=== PATIENT | female | born 1980 | race Caucasian/White ===

== ENCOUNTER → 2020-10-23 | Outpatient (CLI) | payer MEDICARE, OTHER | LOC: ECHO 08:02 | DX: Q24.9 Congenital malformation of heart, unspecified (principal); Q25.6 Stenosis of pulmonary artery | CPT/HCPCS: ECHO; 93306 ==

== ENCOUNTER → 2020-11-13 | Outpatient (CLI) | payer MEDICARE, OTHER ==
[2020-11-14 04:12] LABS: THYROXINE (T4) 8.1 ug/dL (4.5-12.0)
== END ==
LOC: LAB 08:20
PROVIDERS: Pediatrics Pediatric Cardiology
DX: E03.9 Hypothyroidism, unspecified (principal); Q24.9 Congenital malformation of heart, unspecified
CPT/HCPCS: 36415; 80053; 84436; 84443; 84480

== ENCOUNTER → 2020-12-14 | Outpatient (CLI) | payer MEDICARE, OTHER | LOC: KOH-I 09:30 | DX: S22.080A Wedge compression fracture of T11-T12 vertebra, initial encounter for closed fracture (principal); W19.XXXA Unspecified fall, initial encounter; M51.36 Other intervertebral disc degeneration, lumbar region; M54.5 Low back pain; M25.561 Pain in right knee; M25.562 Pain in left knee; R26.2 Difficulty in walking, not elsewhere classified; M48.061 Spinal stenosis, lumbar region without neurogenic claudication; R93.7 Abnormal findings on diagnostic imaging of other parts of musculoskeletal system; M51.34 Other intervertebral disc degeneration, thoracic region; M48.04 Spinal stenosis, thoracic region; M51.84 Other intervertebral disc disorders, thoracic region; M16.12 Unilateral primary osteoarthritis, left hip; M17.0 Bilateral primary osteoarthritis of knee | CPT/HCPCS: 72146 ==

== ENCOUNTER → 2020-12-29 | Outpatient (CLI) | payer MEDICARE, OTHER | LOC: KOH-I 08:00 | DX: M54.50 Low back pain, unspecified (principal); M51.35 Other intervertebral disc degeneration, thoracolumbar region; R53.1 Weakness; M51.36 Other intervertebral disc degeneration, lumbar region | CPT/HCPCS: 72148 ==